=== PATIENT | male | born 1960 | race African-American/Black ===

== ENCOUNTER 2017-03-03 12:50 | Inpatient (IN) | payer BC ==
[2017-03-03 17:07] VITALS: BMI 20.8
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
[2017-03-03] MEDS ORDERED: MAGNESIUM CITRATE 300 ML BOTTLE PO PRN (19:45)
[2017-03-03] MEDS ORDERED: MENTHOL/PHENOL 1 EACH UD MM PRN (19:45)
[2017-03-03] MEDS ORDERED: LOPERAMIDE HCL 2 MG CAPSULE PO PRN (19:45)
[2017-03-03] MEDS ORDERED: guaiFENesin/D-METHORPHAN HB 10 ML UNIT-DOSE CUPS PO PRN (19:45)
[2017-03-03] MEDS ORDERED: MAG HYDROX/AL HYDROX/SIMETH 30 ML UNIT-DOSE CUP PO PRN (19:45)
[2017-03-03] MEDS ORDERED: NICOTINE POLACRILEX 2 MG GUM BUC PRN (19:45)
[2017-03-03] MEDS ORDERED: MAGNESIUM HYDROX 2400MG/30ML ORAL SUSPENSION 30 ML CUP PO PRN (19:45)
[2017-03-03] MEDS ORDERED: chlordiazePOXIDE HCL 25 MG CAPSULE PO ONE (19:45)
[2017-03-03] MEDS ORDERED: chlordiazePOXIDE HCL 25 MG CAPSULE PO PRN (19:45)
[2017-03-03] MEDS ORDERED: P-EPHED 60MG/TRIPROLIDI 2.5MG TABLET PO PRN (19:45)
[2017-03-03] MEDS ORDERED: ACETAMINOPHEN 325 MG TABLET (FP) PO PRN (19:45)
[2017-03-03 22:27] LABS: URINE APPEARANCE CLEAR; URINE BILIRUBIN NEGATIVE (NEGATIVE); URINE BLOOD NEGATIVE (NEGATIVE); URINE COLOR STRAW; URINE GLUCOSE (UA) NEGATIVE (NEGATIVE); URINE KETONE NEGATIVE (NEGATIVE); URINE LEUK ESTERASE NEGATIVE (NEGATIVE); URINE NITRITE NEGATIVE (NEGATIVE); URINE PROTEIN NEGATIVE (NEGATIVE); URINE UROBILINOGEN NEGATIVE E.U./dl (0.2-1.0)
[2017-03-03] MEDS: diphenhydrAMINE HCL 50 MG CAPSULE PO PRN (23:11)
[2017-03-03] MEDS: NAPROXEN 500 MG TABLET (FP) PO SCH (23:12)
[2017-03-03] MEDS: RANITIDINE HCL 150 MG TABLET (FP) PO SCH (23:12)
[2017-03-03] MEDS: chlordiazePOXIDE HCL 25 MG CAPSULE PO SCH (23:12)
[2017-03-03] MEDS: THIAMINE HCL 100 MG TABLET (FP) PO SCH (23:12)
[2017-03-04] MEDS: chlordiazePOXIDE HCL 25 MG CAPSULE PO SCH ×4 (07:36→22:14)
[2017-03-04 10:08] LABS: MCH 32.9 pg (25.7-33.7); MCHC 33.5 g/dl (32.0-35.9); MEAN CELL VOLUME 98.3 fl (80-96); MEAN PLT VOLUME 8.3 fl (7.5-11.1); PLATELET COUNT 160 K/MM3 (134-434); RDW 14.6 % (11.9-15.9); WHITE BLOOD COUNT 4.3 K/mm3 (4.0-10.0)
[2017-03-04 10:31] LABS: ALBUMIN 3.5 g/dl (3.4-5.0); ANION GAP 12 (8-16); CALCIUM 9.2 mg/dL (8.5-10.1); CO2 26 mmol/L (21-32); GLUCOSE,RANDOM 82 mg/dL (74-106); SGOT/AST 32 U/L (15-37)
[2017-03-04 10:34] LABS: ALK PHOS 108 U/L (45-117); COCKROFT - GAULT 99.34; CREATININE 0.7 mg/dL (0.7-1.3); SGPT/ALT 21 U/L (12-78); TOT PROT 7.9 g/dl (6.4-8.2)
[2017-03-04] MEDS: HYDROCHLOROTHIAZIDE 12.5 MG CAPSULE (FP) PO SCH (11:01)
[2017-03-04] MEDS: RANITIDINE HCL 150 MG TABLET (FP) PO SCH ×2 (11:01→22:13)
[2017-03-04] MEDS: PRENATAL VITAMINS W/ FOLIC ACID TABLET (FP) PO SCH (11:01)
[2017-03-04] MEDS: LISINOPRIL 10 MG TABLET (FP) PO SCH (11:01)
[2017-03-04] MEDS: ASPIRIN 81 MG CHEWABLE TABLETS PO SCH (11:01)
[2017-03-04] MEDS: NAPROXEN 500 MG TABLET (FP) PO SCH ×2 (11:02→22:13)
[2017-03-04] MEDS: METHADONE HCL 10 MG TABLET PO SCH (11:03)
[2017-03-04] MEDS: NICOTINE 14 MG/24 HOURS TOPICAL PATCH TD SCH (11:04)
--- NOTE | 2017-03-04 13:54 | PN ---
S CIWA - CIWA Score Nausea/Vomitin Muscle Tremors: 2 Anxiety: 2 Agitation: 2 Paroxysmal Sweats: 3 Orientation: 0-Oriented Tacttile Disturbances: 2-Mild Itch/Numbness/Burn Auditory Disturbances: 0-None Visual Disturbances: 1-Very Mild Sensitivity Headache: 2-Mild CIWA-Ar Total Score: 16 S Progress Note (SOAP) Subjective: Right knee pain, anxiety, shakes and sweat Objective: 03/04/17 13:54 Vital Signs - 8 hr 03/04/17 03/04/17 06:00 10:49 Temperature 98.2 F 98.2 F Pulse Rate 81 99 H Respiratory 18 16 Rate Blood Pressure 135/81 125/79 Laboratory Last Values WBC 4.3 K/mm3 (4.0-10.0) 03/04/17 07:20 RBC 3.94 M/mm3 (4.00-5.60) L 03/04/17 07:20 Hgb 13.0 GM/dL (11.7-16.9) 03/04/17 07:20 Hct 38.7 % (35.4-49) 03/04/17 07:20 MCV 98.3 fl (80-96) H 03/04/17 07:20 MCHC 33.5 g/dl (32.0-35.9) 03/04/17 07:20 RDW 14.6 % (11.9-15.9) 03/04/17 07:20 Plt Count 160 K/MM3 (134-434) 03/04/17 07:20 MPV 8.3 fl (7.5-11.1) 03/04/17 07:20 Sodium 137 mmol/L (136-145) 03/04/17 07:20 Potassium 3.8 mmol/L (3.5-5.1) 03/04/17 07:20 Chloride 99 mmol/L (98-107) 03/04/17 07:20 Carbon Dioxide 26 mmol/L (21-32) 03/04/17 07:20 Anion Gap 12 (8-16) 03/04/17 07:20 BUN 12 mg/dL (7-18) 03/04/17 07:20 Creatinine 0.7 mg/dL (0.7-1.3) 03/04/17 07:20 Creat Clearance w eGFR > 60 (>60) 03/04/17 07:20 Random Glucose 82 mg/dL (74-106) 03/04/17 07:20 Calcium 9.2 mg/dL (8.5-10.1) 03/04/17 07:20 Total Bilirubin 1.0 mg/dL (0.2-1.0) 03/04/17 07:20 AST 32 U/L (15-37) D 03/04/17 07:20 ALT 21 U/L (12-78) D 03/04/17 07:20 Alkaline Phosphatase 108 U/L (45-117) 03/04/17 07:20 Total Protein 7.9 g/dl (6.4-8.2) 03/04/17 07:20 Albumin 3.5 g/dl (3.4-5.0) 03/04/17 07:20 Urine Color Straw 03/03/17 21:30 Urine Appearance Clear 03/03/17 21:30 Urine pH 6.0 (5.0-8.0) 03/03/17 21:30 Ur Specific [place] < 1.005 (1.001-1.035) 03/03/17 21:30 Urine Protein Negative (NEGATIVE) 03/03/17 21:30 Urine Glucose (UA) Negative (NEGATIVE) 03/03/17 21:30 Urine Ketones Negative (NEGATIVE) 03/03/17 21:30 Urine Blood Negative (NEGATIVE) 03/03/17 21:30 Urine Nitrite Negative (NEGATIVE) 03/03/17 21:30 Urine Bilirubin Negative (NEGATIVE) 03/03/17 21:30 Urine Urobilinogen Negative E.U./dl (0.2-1.0) 03/03/17 21:30 Ur Leukocyte Esterase Negative (NEGATIVE) 03/03/17 21:30 RPR Titer Nonreactive (NONREACTIVE) 03/04/17 07:20 Labs noted Assessment: 03/04/17 13:54 withdrawal sx right knee swelling Plan: continue detox xray of the right knee today showed richard loose body in the supra patellar joint space with degenerative changes with no signs of a fracture. There is joint effusion with recommended ortho f/u should symptoms persist. Continue naproxen.
[2017-03-04] MEDS: CALCIUM 250MG/VIT-D 125 UNITS 1 COMBO TABLET PO SCH (15:47)
--- NOTE | 2017-03-04 18:03 | CONSULT ---
[facility] Psychiatric Consult - Data Date of interview: 03/04/17 Admission source: [facility] Identifying data: Another admission to [facility] for this 56 y/o AA male seeking detox treatment on for alcohol,cocaine and opioid dependence.Patient is single,a father of one,domiciled,unemployed and supported on SSI benefits. Substance Abuse History: - Smoking Cessation. Smoking history: Current every day smoker. Have you smoked in the past 12 months: Yes. Aproximately how many cigarettes per day: 10. Cigars Per Day: 0. Hx Chewing Tobacco Use: No. Initiated information on smoking cessation: Yes. 'Breaking Loose' booklet given : 03/03/17. - Substance & Tx. History. Hx Alcohol Use: Yes. Hx Substance Use : Yes. Substance Use Type: Alcohol, Cocaine. Hx Substance Use Treatment: Yes. - Substances Abused. Alcohol. Route: Oral. Frequency: Daily. Amount used: BEER- 8 (24oz). Age of first use: 14. Date of Last Use: 03/03/17. Confirmed by patient. Medical History: Arthritis and a history of orthosurgery for torn ligaments ( right ankle) and right knee (1990).Treated in the past for arthur (right wrist) .Walks with a cane. Psychiatric History: Patient denies.He is prescribed trazodone by his primary care doctor. Physical/Sexual Abuse/Trauma History: Patient denies. Additional Comment: Urine Drug Screen Results: SUZANNA-Cocaine, MTD-Methadone.Noted. Mental Status Exam - Mental Status Exam Alert and Oriented to: Time, Place, Person Cognitive Function: Good Patient Appearance: Well Groomed (walks with a stooped posture) Mood: Irritable (angry at staff for frequent calls such as labs,vitals,consults, exams and sessions) Affect: Mood Congruent Patient Behavior: Fatigued, Cooperative (marginally) Speech Pattern: Clear Voice Loudness: Normal Thought Process: Goal Oriented Thought Disorder: Not Present Hallucinations: Denies Suicidal Ideation: Denies Homicidal Ideation: Denies Insight/Judgement: Poor Sleep: Poorly, Difficulty falling asleep (wants trazodone) Appetite: Poor Gait/Station: Other (ambulkates with cane) Psychiatric Findings - Problem List ([place] 1, 2,3) (1) Alcohol dependence with uncomplicated withdrawal Current Visit: Yes Status: Acute (2) Opioid dependence on agonist therapy Current Visit: No Status: Chronic (3) Cocaine dependence Current Visit: Yes Status: Acute (4) Nicotine dependence Current Visit: Yes Status: Acute Qualifiers: Nicotine product type: cigarettes Substance use status: in withdrawal Qualified Code(s): F17.213 - Nicotine dependence, cigarettes, with withdrawal (5) Substance induced mood disorder Current Visit: Yes Status: Acute (6) Arthritis Current Visit: Yes Status: Acute Comment: SWELLING - right knee - naproxen (7) Weight loss Current Visit: Yes Status: Acute Comment: ENSURE (8) GERD (gastroesophageal reflux disease) Current Visit: Yes Status: Chronic Qualifiers: Esophagitis presence: without esophagitis Qualified Code(s): K21.9 - Gastro-esophageal reflux disease without esophagitis (9) Hypertension Current Visit: Yes Status: Chronic Qualifiers: Hypertension type: essential hypertension Qualified Code(s): I10 - Essential (primary) hypertension (10) Use of cane as ambulatory aid Current Visit: Yes Status: Chronic (11) Insomnia Current Visit: Yes Status: Acute - Initial Treatment Plan Initial Treatment Plan: Psychoeducation.Detoxification.Trazodone 50 mg po hs.Patient made aware of potential for priapism.He is in agreement with this careplan.Observation.
[2017-03-04] MEDS: THIAMINE HCL 100 MG TABLET (FP) PO SCH (22:13)
[2017-03-04] MEDS: traZODone HCL 50 MG TABLET (FP) PO SCH (22:13)
[2017-03-04] MEDS: diphenhydrAMINE HCL 50 MG CAPSULE PO PRN (22:16)
[2017-03-05] MEDS: chlordiazePOXIDE HCL 25 MG CAPSULE PO SCH ×3 (07:43→18:17)
[2017-03-05] MEDS: METHADONE HCL 10 MG TABLET PO SCH (07:46)
[2017-03-05] MEDS: ASPIRIN 81 MG CHEWABLE TABLETS PO SCH (10:54)
[2017-03-05] MEDS: RANITIDINE HCL 150 MG TABLET (FP) PO SCH ×2 (10:55→22:02)
[2017-03-05] MEDS: CALCIUM 250MG/VIT-D 125 UNITS 1 COMBO TABLET PO SCH (10:55)
[2017-03-05] MEDS: PRENATAL VITAMINS W/ FOLIC ACID TABLET (FP) PO SCH (10:55)
[2017-03-05] MEDS: NAPROXEN 500 MG TABLET (FP) PO SCH ×2 (10:55→22:03)
[2017-03-05] MEDS: NICOTINE 14 MG/24 HOURS TOPICAL PATCH TD SCH ×2 (10:55→15:26)
[2017-03-05] MEDS: HYDROCHLOROTHIAZIDE 12.5 MG CAPSULE (FP) PO SCH (10:56)
[2017-03-05] MEDS: LISINOPRIL 10 MG TABLET (FP) PO SCH (10:56)
--- NOTE | 2017-03-05 12:01 | PN ---
[facility] CIWA - CIWA Score Nausea/Vomitin-No Nausea/No Vomiting Muscle Tremors: 3 Anxiety: 4-Mod. Anxious/Guarded Agitation: 4-Moderately Restless Paroxysmal Sweats: 3 Orientation: 0-Oriented Tacttile Disturbances: 0-None Auditory Disturbances: 0-None Visual Disturbances: 0-None Headache: 0-None Present CIWA-Ar Total Score: 14 BHS Progress Note (SOAP) Subjective: Anxiety,tremors,sweating,interrupted sleep,restless Objective: 03/05/17 11:58 Vital Signs - 8 hr 03/05/17 03/05/17 06:00 09:47 Temperature 98.1 F 97.7 F Pulse Rate 98 H 94 H Respiratory 18 20 Rate Blood Pressure 124/93 94/68 Laboratory Last Values WBC 4.3 K/mm3 (4.0-10.0) 03/04/17 07:20 RBC 3.94 M/mm3 (4.00-5.60) L 03/04/17 07:20 Hgb 13.0 GM/dL (11.7-16.9) 03/04/17 07:20 Hct 38.7 % (35.4-49) 03/04/17 07:20 MCV 98.3 fl (80-96) H 03/04/17 07:20 MCHC 33.5 g/dl (32.0-35.9) 03/04/17 07:20 RDW 14.6 % (11.9-15.9) 03/04/17 07:20 Plt Count 160 K/MM3 (134-434) 03/04/17 07:20 MPV 8.3 fl (7.5-11.1) 03/04/17 07:20 Sodium 137 mmol/L (136-145) 03/04/17 07:20 Potassium 3.8 mmol/L (3.5-5.1) 03/04/17 07:20 Chloride 99 mmol/L (98-107) 03/04/17 07:20 Carbon Dioxide 26 mmol/L (21-32) 03/04/17 07:20 Anion Gap 12 (8-16) 03/04/17 07:20 BUN 12 mg/dL (7-18) 03/04/17 07:20 Creatinine 0.7 mg/dL (0.7-1.3) 03/04/17 07:20 Creat Clearance w eGFR > 60 (>60) 03/04/17 07:20 Random Glucose 82 mg/dL (74-106) 03/04/17 07:20 Calcium 9.2 mg/dL (8.5-10.1) 03/04/17 07:20 Total Bilirubin 1.0 mg/dL (0.2-1.0) 03/04/17 07:20 AST 32 U/L (15-37) D 03/04/17 07:20 ALT 21 U/L (12-78) D 03/04/17 07:20 Alkaline Phosphatase 108 U/L (45-117) 03/04/17 07:20 Total Protein 7.9 g/dl (6.4-8.2) 03/04/17 07:20 Albumin 3.5 g/dl (3.4-5.0) 03/04/17 07:20 Urine Color Straw 03/03/17 21:30 Urine Appearance Clear 03/03/17 21:30 Urine pH 6.0 (5.0-8.0) 03/03/17 21:30 Ur Specific [place] < 1.005 (1.001-1.035) 03/03/17 21:30 Urine Protein Negative (NEGATIVE) 03/03/17 21:30 Urine Glucose (UA) Negative (NEGATIVE) 03/03/17 21:30 Urine Ketones Negative (NEGATIVE) 03/03/17 21:30 Urine Blood Negative (NEGATIVE) 03/03/17 21:30 Urine Nitrite Negative (NEGATIVE) 03/03/17 21:30 Urine Bilirubin Negative (NEGATIVE) 03/03/17 21:30 Urine Urobilinogen Negative E.U./dl (0.2-1.0) 03/03/17 21:30 Ur Leukocyte Esterase Negative (NEGATIVE) 03/03/17 21:30 RPR Titer Nonreactive (NONREACTIVE) 03/04/17 07:20 labs noted X-ray of knee is negative for fracture,the are degenerative changes & possible small joint effusion. Assessment: 03/05/17 11:59 Withdrawal sx. Plan: Continue detox
[2017-03-05] MEDS: THIAMINE HCL 100 MG TABLET (FP) PO SCH (22:02)
[2017-03-05] MEDS: traZODone HCL 50 MG TABLET (FP) PO SCH (22:02)
[2017-03-05] MEDS: chlordiazePOXIDE 5 MG CAPSULE PO SCH (22:02)
[2017-03-06] MEDS: chlordiazePOXIDE 5 MG CAPSULE PO SCH ×3 (06:59→17:13)
--- NOTE | 2017-03-06 09:11 | EKG ---
Test Reason : Blood Pressure : / mmHG Vent. Rate : 077 BPM Atrial Rate : 077 BPM P-R Int : 166 ms QRS Dur : 078 ms QT Int : 378 ms P-R-T Axes : 064 067 049 degrees QTc Int : 427 ms NORMAL SINUS RHYTHM WITH SINUS ARRHYTHMIA POSSIBLE LEFT ATRIAL ENLARGEMENT BORDERLINE ECG NO PREVIOUS ECGS AVAILABLE Confirmed by VERONIQUE PRADO MD ([id number]) on 03/06/2017 9:11:18 AM Referred By: Confirmed By:VERONIQUE PRADO MD
[2017-03-06] MEDS: METHADONE HCL 10 MG TABLET PO SCH (10:14)
[2017-03-06] MEDS: CALCIUM 250MG/VIT-D 125 UNITS 1 COMBO TABLET PO SCH (10:15)
[2017-03-06] MEDS: NICOTINE 14 MG/24 HOURS TOPICAL PATCH TD SCH (10:15)
[2017-03-06] MEDS: PRENATAL VITAMINS W/ FOLIC ACID TABLET (FP) PO SCH (10:15)
[2017-03-06] MEDS: NAPROXEN 500 MG TABLET (FP) PO SCH ×2 (10:15→23:54)
[2017-03-06] MEDS: RANITIDINE HCL 150 MG TABLET (FP) PO SCH ×2 (10:15→23:55)
[2017-03-06] MEDS: ASPIRIN 81 MG CHEWABLE TABLETS PO SCH (10:15)
[2017-03-06] MEDS: HYDROCHLOROTHIAZIDE 12.5 MG CAPSULE (FP) PO SCH (10:39)
[2017-03-06] MEDS: LISINOPRIL 10 MG TABLET (FP) PO SCH (10:39)
--- NOTE | 2017-03-06 10:42 | PN ---
BHS Progress Note (SOAP) Subjective: sweats stomach cramps Objective: 03/06/17 10:41 Vital Signs Temperature 97.7 F 03/06/17 09:59 Pulse Rate 75 03/06/17 09:59 Respiratory Rate 16 03/06/17 09:59 Blood Pressure 105/74 03/06/17 09:59 O2 Sat by Pulse Oximetry (%) awake/alert ambulating no acute distress Assessment: 03/06/17 10:42 withdrawal sx Plan: continue detox mom/mylanta d/c in am
[2017-03-06] MEDS: traZODone HCL 50 MG TABLET (FP) PO SCH (23:54)
[2017-03-06] MEDS: chlordiazePOXIDE HCL 10 MG CAPSULE PO SCH (23:54)
[2017-03-06] MEDS: THIAMINE HCL 100 MG TABLET (FP) PO SCH (23:55)
[2017-03-07] MEDS: METHADONE HCL 10 MG TABLET PO SCH (06:44)
[2017-03-07] MEDS: chlordiazePOXIDE HCL 10 MG CAPSULE PO SCH (06:44)
--- NOTE | 2017-03-07 08:45 | DS ---
[facility] Detox Discharge Summary Admission Date: 03/03/17 Discharge Date: 03/07/17 - History Present History: Alcohol Dependence, Cocaine Dependence, MMTP - Physical Exam Results Vital Signs: Vital Signs Temperature 96.8 F L 03/07/17 06:07 Pulse Rate 75 03/07/17 06:07 Respiratory Rate 16 03/07/17 06:07 Blood Pressure 98/65 03/07/17 06:07 O2 Sat by Pulse Oximetry (%) - Treatment Hospital Course: Detox Protocol Followed, Detoxed Safely, Responded well, Discharged Condition Good - Medication Discharge Medications: Ambulatory Orders Trazodone HCl [Desyrel -] 50 mg PO HS 09/03/16 Trazodone HCl [Desyrel -] 50 mg PO HS #30 tablet 03/04/17 - Diagnosis (1) Alcohol dependence with uncomplicated withdrawal Current Visit: Yes Status: Chronic (2) Arthritis Current Visit: Yes Status: Chronic (3) Cocaine dependence Current Visit: Yes Status: Chronic Qualifiers: Substance use status: uncomplicated Qualified Code(s): F14.20 - Cocaine dependence, uncomplicated (4) Nicotine dependence Current Visit: Yes Status: Chronic Qualifiers: Nicotine product type: cigarettes Substance use status: in withdrawal Qualified Code(s): F17.213 - Nicotine dependence, cigarettes, with withdrawal (5) Weight loss Current Visit: Yes Status: Acute (6) Use of cane as ambulatory aid Current Visit: Yes Status: Chronic (7) Anxiety Current Visit: Yes Status: Chronic - AMA Did Patient Leave Against Medical Advice: No
[2017-03-07] MEDS: RANITIDINE HCL 150 MG TABLET (FP) PO SCH (10:00)
[2017-03-07] MEDS: LISINOPRIL 10 MG TABLET (FP) PO SCH (10:00)
[2017-03-07] MEDS: HYDROCHLOROTHIAZIDE 12.5 MG CAPSULE (FP) PO SCH (10:00)
[2017-03-07] MEDS: ASPIRIN 81 MG CHEWABLE TABLETS PO SCH (10:00)
[2017-03-07] MEDS: CALCIUM 250MG/VIT-D 125 UNITS 1 COMBO TABLET PO SCH (10:00)
[2017-03-07] MEDS: NAPROXEN 500 MG TABLET (FP) PO SCH (10:00)
[2017-03-07] MEDS: NICOTINE 14 MG/24 HOURS TOPICAL PATCH TD SCH (10:00)
[2017-03-07] MEDS: PRENATAL VITAMINS W/ FOLIC ACID TABLET (FP) PO SCH (10:00)
[2017-03-07 11:05] VITALS: BP 100/65; PULSE 96; TEMP 98.1
== END 2017-03-07 10:02 | disposition home or self-care (01) | DRG 774 ==
LOC: YASAS 12:50 → Y6N 18:42
PROVIDERS: ADMIT Internal Medicine; ATTEND Internal Medicine
DX: F10.230 Alcohol dependence with withdrawal, uncomplicated (principal); F14.20 Cocaine dependence, uncomplicated; F17.213 Nicotine dependence, cigarettes, with withdrawal; F19.24 Other psychoactive substance dependence with psychoactive substance-induced mood disorder; K21.9 Gastro-esophageal reflux disease without esophagitis; M12.9 Arthropathy, unspecified; R26.2 Difficulty in walking, not elsewhere classified; R63.4 Abnormal weight loss; Z68.20 Body mass index [BMI] 20.0-20.9, adult; F41.9 Anxiety disorder, unspecified
CPT/HCPCS: 36415; 73560-TC-RT; 80053; 81003; 85027; 86593; 93005; 93010

== ENCOUNTER 2017-07-08 13:59 | Inpatient (IN) | payer BC ==
[2017-07-08 14:44] VITALS: BMI 24.5
--- NOTE | 2017-07-08 16:22 | HP ---
CIWA Score - CIWA Score Nausea/Vomitin Muscle Tremors: 2 Anxiety: 2 Agitation: 2 Paroxysmal Sweats: 2 Orientation: 1-Uncertain about Date Tacttile Disturbances: 1-Very Mild Itch/Numbness Auditory Disturbances: 1-Very Mild Visual Disturbances: 1-Very Mild Sensitivity Headache: 2-Mild CIWA-Ar Total Score: 16 Admission ROS BHS - HPI Chief Complaint: I am here because I'm drinking Allergies/Adverse Reactions: Allergies Allergy/AdvReac Type Severity Reaction Status Date / Time No Known Allergies Allergy Verified 10/07/16 17:12 History of Present Illness: 57 year old man with alcohol dependence presents for detox. His last treatment was at [facility] 4 months ago. He is on methadone maintenance, 30mg with last dose today.. Exam Limitations: No Limitations - Ebola screening Have you traveled outside of the country in the last 21 days: No Have you had contact with anyone from an Ebola affected area: No Have you been sick,other than usual withdrawal symptoms: No Do you have a fever: No - Review of Systems Constitutional: Chills, Loss of Appetite EENT: reports: No Symptoms Reported Respiratory: reports: No Symptoms reported Cardiac: reports: No Symptoms Reported GI: reports: No Symptoms Reported : reports: No Symptoms Reported Musculoskeletal: reports: Back Pain, Muscle Pain, Muscle Weakness Integumentary: reports: No Symptoms Reported Neuro: reports: Headache Endocrine: reports: No Symptoms Reported Hematology: reports: No Symptoms Reported Psychiatric: reports: No Sypmtoms Reported, Depressed Other Systems: Reviewed and Negative Patient History - Patient Medical History Hx Anemia: No Hx Asthma: No Hx Chronic Obstructive Pulmonary Disease (COPD): No Hx Cancer: No Hx Cardiac Disorders: No Hx Congestive Heart Failure: No Hx Hypertension: Yes Hx Hypercholesterolemia: No Hx Pacemaker: No HX Cerebrovascular Accident: No Hx Seizures: No Hx Dementia: No Hx Diabetes: No Hx Gastrointestinal Disorders: Yes Hx Liver Disease: No Hx Genitourinary Disorders: No Hx Sexually Transmitted Disorders: No Hx Renal Disease (ESRD): No Hx Thyroid Disease: No Hx Human Immunodeficiency Virus (HIV): No Hx Hepatitis C: No Hx Depression: Yes Hx Suicide Attempt: No Hx Bipolar Disorder: No Hx Schizophrenia: No - Patient Surgical History Past Surgical History: Yes Hx Neurologic Surgery: No Hx Cataract Extraction: No Hx Cardiac Surgery: No Hx Lung Surgery: No Hx Breast Surgery: No Hx Breast Biopsy: No Hx Abdominal Surgery: No Hx Appendectomy: No Hx Cholecystectomy: No Hx Genitourinary Surgery: No Hx Section: No Hx Orthopedic Surgery: Yes (rt knee surgery in 1990) Other Surgical History: right ankle torn ligament repair Anesthesia Reaction: No - PPD History Previous Implant?: Yes Documented Results: Negative w/proof Implanted On Prior [facility] Admission?: Yes Date: 07/21/16 Results: 0 mm PPD to be Administered?: Yes - Smoking Cessation Smoking history: Current every day smoker Have you smoked in the past 12 months: Yes Aproximately how many cigarettes per day: 10 Cigars Per Day: 0 Hx Chewing Tobacco Use: No Initiated information on smoking cessation: Yes 'Breaking Loose' booklet given: 07/08/17 - Substance & Tx. History Hx Alcohol Use: Yes (beer) Hx Substance Use: Yes Substance Use Type: Cocaine - Substances Abused Alcohol Route: Oral Frequency: Daily Amount used: 9 24 oz cans Age of first use: 13 Date of Last Use: 07/08/17 Cocaine Route: Smoking Frequency: Daily Amount used: 1 bag Age of first use: 14 Date of Last Use: 07/08/17 Family Disease History - Family Disease History Family Disease History: CA: Father (lung ca alcohol), Other: Mother ( htn) Admission Physical Exam S - Vital Signs Vital Signs: Vital Signs - 24 hr 07/08/17 14:42 Temperature 95.9 F L Pulse Rate 95 H Respiratory 20 Rate Blood Pressure 127/83 - Physical General Appearance: Yes: No Apparent Distress HEENTM: Yes: Hearing grossly Normal, Normocephalic, Normal Voice, STEFANIE Respiratory: Yes: Chest Non-Tender, Lungs Clear, No Accessory Muscle Use Neck: Yes: No masses,lesions,Nodules, Supple Breast: Yes: Breast Exam Deferred Cardiology: Yes: Regular Rhythm, Regular Rate Abdominal: Yes: Normal Bowel Sounds, Non Tender, Soft Genitourinary: Yes: Within Normal Limits Back: Yes: Normal Inspection Musculoskeletal: Yes: Other (right knee pain, walks with a cane) Extremities: Yes: Normal Capillary Refill, Normal Inspection, Normal Range of Motion Neurological: Yes: Fully Oriented, Motor Strength 5/5, Normal Mood/Affect Integumentary: Yes: Normal Color Lymphatic: Yes: Within Normal Limits - Diagnostic (1) Alcohol dependence with uncomplicated withdrawal Current Visit: No Status: Chronic (2) Cocaine dependence Current Visit: No Status: Chronic Qualifiers: Substance use status: uncomplicated Qualified Code(s): F14.20 - Cocaine dependence, uncomplicated (3) Hypertension Current Visit: No Status: Chronic Qualifiers: Hypertension type: essential hypertension Qualified Code(s): I10 - Essential (primary) hypertension (4) Methadone maintenance therapy patient Current Visit: No Status: Chronic Comment: 30 MG verification pending (5) Nicotine dependence Current Visit: No Status: Chronic Qualifiers: Nicotine product type: cigarettes Substance use status: in withdrawal Qualified Code(s): F17.213 - Nicotine dependence, cigarettes, with withdrawal (6) Depression Current Visit: No Status: Suspected Qualifiers: Depression Type: dysthymia Qualified Code(s): F34.1 - Dysthymic disorder Comment: TRAZODONE Cleared for Admission S - Detox or Rehab [facility] Level of Care: Medically Managed Detox Regimen/Protocol: Librium S Breath Alcohol Content Breath Alcohol Content: 0.320 Urine Drug Screen - Results Drug Screen Negative: No Urine Drug Screen Results: SUZANNA-Cocaine, MTD-Methadone
[2017-07-08] MEDS ORDERED: chlordiazePOXIDE HCL 25 MG CAPSULE PO PRN (16:34)
[2017-07-08] MEDS ORDERED: LOPERAMIDE HCL 2 MG CAPSULE PO PRN (16:34)
[2017-07-08] MEDS ORDERED: NICOTINE POLACRILEX 2 MG GUM BUC PRN (16:34)
[2017-07-08] MEDS ORDERED: ACETAMINOPHEN 325 MG TABLET (FP) PO PRN (16:34)
[2017-07-08] MEDS ORDERED: MENTHOL/PHENOL 1 EACH UD MM PRN (16:34)
[2017-07-08] MEDS ORDERED: MAGNESIUM CITRATE 300 ML BOTTLE PO PRN (16:34)
[2017-07-08] MEDS ORDERED: guaiFENesin/D-METHORPHAN HB 10 ML UNIT-DOSE CUPS PO PRN (16:34)
[2017-07-08] MEDS ORDERED: P-EPHED 60MG/TRIPROLIDI 2.5MG TABLET PO PRN (16:34)
[2017-07-08] MEDS ORDERED: MAG HYDROX/AL HYDROX/SIMETH 30 ML UNIT-DOSE CUP PO PRN (16:34)
[2017-07-08] MEDS ORDERED: chlordiazePOXIDE HCL 25 MG CAPSULE PO ONE (16:34)
[2017-07-08] MEDS ORDERED: IBUPROFEN 400 MG TABLET (FP) PO PRN (16:34)
[2017-07-08] MEDS ORDERED: MAGNESIUM HYDROX 2400MG/30ML ORAL SUSPENSION 30 ML CUP PO PRN (16:34)
[2017-07-08] MEDS: chlordiazePOXIDE HCL 25 MG CAPSULE PO SCH ×2 (21:56→21:59)
[2017-07-08] MEDS: NICOTINE 14 MG/24 HOURS TOPICAL PATCH TD SCH (21:57)
[2017-07-08] MEDS: diphenhydrAMINE HCL 50 MG CAPSULE PO PRN (21:59)
[2017-07-08] MEDS: THIAMINE HCL 100 MG TABLET (FP) PO SCH (21:59)
[2017-07-09] MEDS: chlordiazePOXIDE HCL 25 MG CAPSULE PO SCH ×4 (05:12→22:51)
[2017-07-09 09:50] LABS: MCH 31.8 pg (25.7-33.7); MCHC 33.3 g/dl (32.0-35.9); MEAN CELL VOLUME 95.5 fl (80-96); MEAN PLT VOLUME 7.8 fl (7.5-11.1); PLATELET COUNT 213 K/MM3 (134-434); RDW 15.3 % (11.9-15.9)
--- NOTE | 2017-07-09 09:54 | EKG ---
Test Reason : Blood Pressure : / mmHG Vent. Rate : 067 BPM Atrial Rate : 067 BPM P-R Int : 182 ms QRS Dur : 082 ms QT Int : 408 ms P-R-T Axes : 070 074 053 degrees QTc Int : 431 ms NORMAL SINUS RHYTHM POSSIBLE LEFT ATRIAL ENLARGEMENT NONSPECIFIC T WAVE ABNORMALITY Confirmed by MD EDWARDO, DANNY ([id number]) on 07/09/2017 9:53:51 AM Referred By: Confirmed By:DANNY BROOKE MD
[2017-07-09] MEDS: PRENATAL VITAMINS W/ FOLIC ACID TABLET (FP) PO SCH (10:17)
[2017-07-09] MEDS: LISINOPRIL 10 MG TABLET (FP) PO SCH (10:17)
[2017-07-09] MEDS: NICOTINE 14 MG/24 HOURS TOPICAL PATCH TD SCH (10:17)
[2017-07-09 10:23] LABS: ALBUMIN 3.3 g/dl (3.4-5.0); ALK PHOS 94 U/L (45-117); ANION GAP 8 (8-16); BILIRUBIN,TOTAL 0.7 mg/dL (0.2-1.0); CALCIUM 8.8 mg/dL (8.5-10.1); CO2 29 mmol/L (21-32); CREATININE 0.8 mg/dL (0.7-1.3); GLUCOSE,RANDOM 87 mg/dL (74-106); SGOT/AST 33 U/L (15-37); SGPT/ALT 19 U/L (12-78); TOT PROT 7.8 g/dl (6.4-8.2)
[2017-07-09] MEDS ORDERED: METHADONE HCL 10 MG TABLET PO ONE (11:30)
--- NOTE | 2017-07-09 17:27 | PN ---
S CIWA - CIWA Score Nausea/Vomitin Muscle Tremors: 4-Moderate,w/Arms Extend Anxiety: 4-Mod. Anxious/Guarded Agitation: 4-Moderately Restless Paroxysmal Sweats: 3 Orientation: 0-Oriented Tacttile Disturbances: 0-None Auditory Disturbances: 0-None Visual Disturbances: 0-None Headache: 3-Moderate CIWA-Ar Total Score: 21 BHS Progress Note (SOAP) Subjective: N/D, chills, sweating, headache, stuffy nose, interrupted sleep. Patient reports taking methadone 30mg PO daily as MMTP. He was able to locate his empty bottle of methadone 30mg that was given to him by his MMTP for today's dose. As per patient, the bottle was not covered properly so it spilled into his jacket pocket. Patient aware that junior copywriter will not give him no more than 10mg of methadone today until his dose is verified in AM. Objective: 07/09/17 17:24 Last Vital Signs Temp Pulse Resp BP Pulse Ox 98.7 F 90 20 131/86 07/09/17 13:24 07/09/17 13:24 07/09/17 13:24 07/09/17 13:24 Laboratory Tests 07/09/17 07/09/17 07/09/17 07:50 07:50 07:50 WBC 5.0 RBC 3.75 L Hgb 11.9 Hct 35.8 MCV 95.5 MCH 31.8 MCHC 33.3 RDW 15.3 Plt Count 213 D MPV 7.8 Sodium 135 L Potassium 4.1 Chloride 98 Carbon Dioxide 29 Anion Gap 8 BUN 12 Creatinine 0.8 Creat Clearance w eGFR > 60 Random Glucose 87 Calcium 8.8 Total Bilirubin 0.7 D AST 33 ALT 19 Alkaline Phosphatase 94 Total Protein 7.8 Albumin 3.3 L RPR Titer Reactive 1:1 H D T.pallidum Ab (MHA) Reactive Labs noted: RPR reactive 1:1 titer, TPPA reactive. Patient reports h/o Syphilis and was treated ~ 1 year ago at [facility] with 3 IM injections Assessment: 07/09/17 17:26 Withdrawal symptoms Noted with latent syphilis Opioid dependence, on MMTP Plan: Continue detox Latent syphilis: asymptomatic, treated ~1 year ago as per patient, follow up with PCP for monitoring Opioid dependence, on MMTP: suspected that yesterday, the patient drank today's methadone dose of 30mg along with yesterday's dose. Give methadone 10mg PO x 1 dose today. Need to verify his methadone MMTP in AM
[2017-07-09] MEDS: diphenhydrAMINE HCL 50 MG CAPSULE PO PRN (22:51)
[2017-07-09] MEDS: THIAMINE HCL 100 MG TABLET (FP) PO SCH (22:51)
[2017-07-10] MEDS: chlordiazePOXIDE HCL 25 MG CAPSULE PO SCH ×2 (05:31→10:43)
--- NOTE | 2017-07-10 08:47 | PN ---
S CIWA - CIWA Score Nausea/Vomitin Muscle Tremors: 4-Moderate,w/Arms Extend Anxiety: 4-Mod. Anxious/Guarded Agitation: 4-Moderately Restless Paroxysmal Sweats: 3 Orientation: 0-Oriented Tacttile Disturbances: 0-None Auditory Disturbances: 0-None Visual Disturbances: 0-None Headache: 0-None Present CIWA-Ar Total Score: 18 BHS Progress Note (SOAP) Subjective: nausa, sweats, interrupted sleep, anxiety, tremors Objective: 07/10/17 08:44 Vital Signs - 8 hr 07/10/17 07/10/17 03:41 06:33 Temperature 98 F Pulse Rate 82 Respiratory 18 18 Rate Blood Pressure 121/84 Laboratory Tests 07/09/17 07/09/17 07/09/17 07:50 07:50 07:50 WBC 5.0 RBC 3.75 L Hgb 11.9 Hct 35.8 MCV 95.5 MCH 31.8 MCHC 33.3 RDW 15.3 Plt Count 213 D MPV 7.8 Sodium 135 L Potassium 4.1 Chloride 98 Carbon Dioxide 29 Anion Gap 8 BUN 12 Creatinine 0.8 Creat Clearance w eGFR > 60 Random Glucose 87 Calcium 8.8 Total Bilirubin 0.7 D AST 33 ALT 19 Alkaline Phosphatase 94 Total Protein 7.8 Albumin 3.3 L RPR Titer Reactive 1:1 H D T.pallidum Ab (MHA) Reactive Assessment: 07/10/17 08:45 withdrawal sx Plan: cont detox, rpr +ve patient informed of result, methadone dose verified, 30mg ordered
[2017-07-10] MEDS: METHADONE HCL 10 MG TABLET PO SCH (10:42)
[2017-07-10] MEDS: LISINOPRIL 10 MG TABLET (FP) PO SCH (10:43)
[2017-07-10] MEDS: NICOTINE 14 MG/24 HOURS TOPICAL PATCH TD SCH (10:43)
[2017-07-10] MEDS: PRENATAL VITAMINS W/ FOLIC ACID TABLET (FP) PO SCH (10:43)
--- NOTE | 2017-07-10 13:20 | CONSULT ---
[facility] Psychiatric Consult - Data Date of interview: 07/10/17 Admission source: [facility] Identifying data: Patient refused psychiatric evaluation.
[2017-07-10] MEDS: chlordiazePOXIDE 5 MG CAPSULE PO SCH ×2 (17:40→22:17)
[2017-07-10] MEDS: THIAMINE HCL 100 MG TABLET (FP) PO SCH (22:17)
[2017-07-10] MEDS: diphenhydrAMINE HCL 50 MG CAPSULE PO PRN (22:17)
[2017-07-11] MEDS: METHADONE HCL 10 MG TABLET PO SCH (05:45)
[2017-07-11] MEDS: chlordiazePOXIDE 5 MG CAPSULE PO SCH ×2 (05:46→10:25)
[2017-07-11] MEDS: NICOTINE 14 MG/24 HOURS TOPICAL PATCH TD SCH (10:25)
[2017-07-11] MEDS: LISINOPRIL 10 MG TABLET (FP) PO SCH (10:25)
[2017-07-11] MEDS: PRENATAL VITAMINS W/ FOLIC ACID TABLET (FP) PO SCH (10:25)
--- NOTE | 2017-07-11 12:18 | PN ---
BHS Progress Note (SOAP) Subjective: Sweating, Diarrhea, Tremors, Body Aches, Interrupted sleep, Stomach Cramping, H/ A, Vomiting. Objective: PT. A & O X 3. NO ACUTE DISTRESS. 07/11/17 12:17 Vital Signs Temperature 98.4 F 07/11/17 09:24 Pulse Rate 86 07/11/17 09:24 Respiratory Rate 18 07/11/17 09:24 Blood Pressure 119/86 07/11/17 09:24 O2 Sat by Pulse Oximetry (%) Laboratory Tests 07/09/17 07/09/17 07/09/17 07:50 07:50 07:50 WBC 5.0 RBC 3.75 L Hgb 11.9 Hct 35.8 MCV 95.5 MCH 31.8 MCHC 33.3 RDW 15.3 Plt Count 213 D MPV 7.8 Sodium 135 L Potassium 4.1 Chloride 98 Carbon Dioxide 29 Anion Gap 8 BUN 12 Creatinine 0.8 Creat Clearance w eGFR > 60 Random Glucose 87 Calcium 8.8 Total Bilirubin 0.7 D AST 33 ALT 19 Alkaline Phosphatase 94 Total Protein 7.8 Albumin 3.3 L RPR Titer Reactive 1:1 H D T.pallidum Ab (MHA) Reactive labs noted. Assessment: 07/11/17 12:18 WITHDRAWAL SYMPTOMS. Plan: CONTINUE DETOX.
[2017-07-11] MEDS: chlordiazePOXIDE HCL 10 MG CAPSULE PO SCH ×2 (17:05→22:19)
[2017-07-11 18:11] LABS: URINE APPEARANCE SLCLOUDY; URINE BILIRUBIN NEGATIVE (NEGATIVE); URINE BLOOD NEGATIVE (NEGATIVE); URINE COLOR YELLOW; URINE GLUCOSE (UA) NEGATIVE (NEGATIVE); URINE KETONE NEGATIVE (NEGATIVE); URINE LEUK ESTERASE NEGATIVE (NEGATIVE); URINE NITRITE NEGATIVE (NEGATIVE); URINE PROTEIN NEGATIVE (NEGATIVE); URINE UROBILINOGEN NEGATIVE mg/dL (0.2-1.0)
[2017-07-11] MEDS: THIAMINE HCL 100 MG TABLET (FP) PO SCH (22:19)
[2017-07-11] MEDS: hydrOXYzine PAMOATE 50 MG CAPSULE (FP) PO PRN (22:21)
[2017-07-12] MEDS: hydrOXYzine PAMOATE 50 MG CAPSULE (FP) PO PRN (03:28)
[2017-07-12] MEDS: METHADONE HCL 10 MG TABLET PO SCH (05:39)
[2017-07-12] MEDS: chlordiazePOXIDE HCL 10 MG CAPSULE PO SCH (05:40)
[2017-07-12 06:30] VITALS: PULSE 89; TEMP 97.7
[2017-07-12 10:05] VITALS: BP 123/82
[2017-07-12] MEDS: NICOTINE 14 MG/24 HOURS TOPICAL PATCH TD SCH (10:24)
[2017-07-12] MEDS: PRENATAL VITAMINS W/ FOLIC ACID TABLET (FP) PO SCH (10:24)
[2017-07-12] MEDS: LISINOPRIL 10 MG TABLET (FP) PO SCH (10:24)
--- NOTE | 2017-07-12 20:23 | DS ---
[facility] Detox Discharge Summary Admission Date: 07/08/17 Discharge Date: 07/12/17 - History Present History: Alcohol Dependence, Cocaine Dependence, MMTP Additional Comments: PATIENT GOING TO [facility] ([facility]) FOR AFTERCARE. PATIENT WAS DICHARGED FROM DETOX UNIT IN STABLE MEDICAL CONDITION. Pertinent Past History: HTN, GERD, Depression. - Physical Exam Results Vital Signs: Vital Signs Temperature 97.7 F 07/12/17 10:05 Pulse Rate 89 07/12/17 10:05 Respiratory Rate 18 07/12/17 10:05 Blood Pressure 123/82 07/12/17 10:05 O2 Sat by Pulse Oximetry (%) Pertinent Admission Physical Exam Findings: WITHDRAWAL SYMPTOMS. Laboratory Tests 07/09/17 07/09/17 07/09/17 07:50 07:50 07:50 WBC 5.0 RBC 3.75 L Hgb 11.9 Hct 35.8 MCV 95.5 MCH 31.8 MCHC 33.3 RDW 15.3 Plt Count 213 D MPV 7.8 Sodium 135 L Potassium 4.1 Chloride 98 Carbon Dioxide 29 Anion Gap 8 BUN 12 Creatinine 0.8 Creat Clearance w eGFR > 60 Random Glucose 87 Calcium 8.8 Total Bilirubin 0.7 D AST 33 ALT 19 Alkaline Phosphatase 94 Total Protein 7.8 Albumin 3.3 L Urine Color Urine Appearance Urine pH Ur Specific [place] Urine Protein Urine Glucose (UA) Urine Ketones Urine Blood Urine Nitrite Urine Bilirubin Urine Urobilinogen RPR Titer Reactive 1:1 H D T.pallidum Ab (MHA) Reactive 07/11/17 14:00 WBC RBC Hgb Hct MCV MCH MCHC RDW Plt Count MPV Sodium Potassium Chloride Carbon Dioxide Anion Gap BUN Creatinine Creat Clearance w eGFR Random Glucose Calcium Total Bilirubin AST ALT Alkaline Phosphatase Total Protein Albumin Urine Color Yellow Urine Appearance Slcloudy Urine pH 6.0 Ur Specific [place] <= 1.005 Urine Protein Negative Urine Glucose (UA) Negative Urine Ketones Negative Urine Blood Negative Urine Nitrite Negative Urine Bilirubin Negative Urine Urobilinogen Negative RPR Titer T.pallidum Ab (MHA) LABS NOTED. - Treatment Hospital Course: Detox Protocol Followed, Detoxed Safely, Responded well, Discharged Condition Good, Rehab Referral Accepted Patient has Accepted a Rehab Referral to: [facility] ([facility] - Medication Discharge Medications: Ambulatory Orders Trazodone HCl [Desyrel -] 50 mg PO HS 09/03/16 Trazodone HCl [Desyrel -] 50 mg PO HS #30 tablet 03/04/17 Calcium 250Mg/Vit-D 125 Units [Oscal 250 mg+D -] 1 tab PO DAILY #30 tab Hydrochlorothiazide [Hctz -] 12.5 mg PO DAILY #30 cap 03/07/17 Ranitidine [Zantac -] 150 mg PO BID #60 tablet 03/07/17 Lisinopril [Prinivil] 10 mg PO DAILY #30 tablet 07/12/17 - Diagnosis (1) Alcohol dependence with uncomplicated withdrawal Status: Acute (2) Cocaine dependence Status: Acute Qualifiers: Substance use status: uncomplicated Qualified Code(s): F14.20 - Cocaine dependence, uncomplicated (3) GERD (gastroesophageal reflux disease) Status: Chronic Qualifiers: Esophagitis presence: without esophagitis Qualified Code(s): K21.9 - Gastro-esophageal reflux disease without esophagitis (4) Hypertension Status: Chronic Qualifiers: Hypertension type: essential hypertension Qualified Code(s): I10 - Essential (primary) hypertension (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
== END 2017-07-12 10:43 | disposition home or self-care (01) | DRG 773 ==
LOC: YASAS 13:59 → Y3N 17:57
PROVIDERS: ADMIT Internal Medicine Addiction Medicine; ATTEND Internal Medicine Addiction Medicine
PROC: HZ2ZZZZ Detoxification Services for Substance Abuse Treatment (ICD-10-PCS; principal; 2017-07-08)
DX: F11.20 Opioid dependence, uncomplicated (principal); F10.230 Alcohol dependence with withdrawal, uncomplicated; F14.20 Cocaine dependence, uncomplicated; F17.210 Nicotine dependence, cigarettes, uncomplicated; F34.1 Dysthymic disorder; I10 Essential (primary) hypertension; K21.9 Gastro-esophageal reflux disease without esophagitis; Z59.0 Homelessness
CPT/HCPCS: 36415; 80053; 81003; 85027; 86593; 86780; 93005; 93010

== ENCOUNTER 2017-12-04 12:55 | Inpatient (IN) | payer BC ==
[2017-12-04 16:21] VITALS: BMI 20.9
--- NOTE | 2017-12-04 16:37 | HP ---
CIWA Score - CIWA Score Nausea/Vomitin-No Nausea/No Vomiting Muscle Tremors: 4-Moderate,w/Arms Extend Anxiety: 4-Mod. Anxious/Guarded Agitation: 4-Moderately Restless Paroxysmal Sweats: 3 Orientation: 0-Oriented Tacttile Disturbances: 0-None Auditory Disturbances: 0-None Visual Disturbances: 0-None Headache: 1-Very Mild CIWA-Ar Total Score: 16 Admission ROS BHS - HPI Chief Complaint: I am here to detox. Allergies/Adverse Reactions: Allergies Allergy/AdvReac Type Severity Reaction Status Date / Time No Known Allergies Allergy Verified 12/04/17 16:06 History of Present Illness: pt is a 57yr old male with a history of alcohol dependence seeking detox for treatment. Exam Limitations: No Limitations - Ebola screening Have you traveled outside of the country in the last 21 days: No (N) Have you had contact with anyone from an Ebola affected area: No Have you been sick,other than usual withdrawal symptoms: No Do you have a fever: No - Review of Systems Constitutional: Chills EENT: reports: No Symptoms Reported Respiratory: reports: No Symptoms reported Cardiac: reports: Lightheadedness GI: reports: Nausea, Poor Appetite, Poor Fluid Intake, Vomiting, Indigestion : reports: No Symptoms Reported Musculoskeletal: reports: No Symptoms Reported Integumentary: reports: No Symptoms Reported Neuro: reports: Tingling, Tremors Endocrine: reports: Excessive Sweating, Flushing, Intolerance to Cold, Intolerance to Heat Hematology: reports: No Symptoms Reported Psychiatric: reports: Judgement Intact, Mood/Affect Appropiate, Orientated x3, Agitated, Anxious Other Systems: Reviewed and Negative Patient History - Patient Medical History Hx Anemia: No Hx Asthma: No Hx Chronic Obstructive Pulmonary Disease (COPD): No Hx Cancer: No Hx Cardiac Disorders: No Hx Congestive Heart Failure: No Hx Hypertension: Yes (not on meds.) Hx Hypercholesterolemia: No Hx Pacemaker: No HX Cerebrovascular Accident: No Hx Seizures: No Hx Dementia: No Hx Diabetes: No Hx Gastrointestinal Disorders: Yes (GERD) Hx Liver Disease: No Hx Genitourinary Disorders: No Hx Sexually Transmitted Disorders: No Hx Renal Disease (ESRD): No Hx Thyroid Disease: No Hx Human Immunodeficiency Virus (HIV): No (negative) Hx Hepatitis C: No (negative) Hx Depression: No Hx Suicide Attempt: No (denies) Hx Bipolar Disorder: No Hx Schizophrenia: No - Patient Surgical History Past Surgical History: Yes Hx Neurologic Surgery: No Hx Cataract Extraction: No Hx Cardiac Surgery: No Hx Lung Surgery: No Hx Breast Surgery: No Hx Breast Biopsy: No Hx Abdominal Surgery: No Hx Appendectomy: No Hx Cholecystectomy: No Hx Genitourinary Surgery: No Hx Section: No Hx Orthopedic Surgery: Yes (rt knee surgery in 1990) Other Surgical History: right ankle torn ligament repair Anesthesia Reaction: No - PPD History Previous Implant?: Yes Documented Results: Negative w/o proof Implanted On Prior [facility] Admission?: Yes Date: 07/21/16 Results: 0 mm PPD to be Administered?: No - Reproductive History Patient is a Female of Child Bearing Age (11 -55 yrs old): No - Smoking Cessation Smoking history: Current every day smoker Have you smoked in the past 12 months: Yes Aproximately how many cigarettes per day: 10 Cigars Per Day: 0 Hx Chewing Tobacco Use: No Initiated information on smoking cessation: Yes 'Breaking Loose' booklet given: 12/04/17 - Substance & Tx. History Hx Alcohol Use: Yes Substance Use Type: Alcohol Hx Substance Use Treatment: Yes (last detox 2016) - Substances Abused Alcohol Route: Oral Frequency: Daily Amount used: 8 24 OZ CANS MALT LIQUOR. Age of first use: 14 Date of Last Use: 12/04/17 Family Disease History - Family Disease History Family Disease History: CA: Father (lung ca alcohol), Other: Mother ( htn) Admission Physical Exam BHS - Vital Signs Vital Signs: Vital Signs - 24 hr 12/04/17 16:04 Temperature 97.1 F L Pulse Rate 86 Respiratory 20 Rate Blood Pressure 151/105 - Physical General Appearance: Yes: Appropriately Dressed, Moderate Distress, Tremorous, Irritable, Sweating, Anxious HEENTM: Yes: Normal Voice, Nasal Congestion Respiratory: Yes: Lungs Clear, Normal Breath Sounds, No Respiratory Distress Neck: Yes: No masses,lesions,Nodules Breast: Yes: Within Normal Limits Cardiology: Yes: Regular Rhythm, Regular Rate, S1, S2 Abdominal: Yes: Normal Bowel Sounds, Non Tender, Soft Genitourinary: Yes: Within Normal Limits Back: Yes: Normal Inspection Musculoskeletal: Yes: full range of Motion Extremities: Yes: Normal Capillary Refill, Normal Inspection, Tremors Neurological: Yes: Fully Oriented, Alert, Normal Response Integumentary: Yes: Normal Color, Diaphoresis Lymphatic: Yes: Within Normal Limits - Diagnostic (1) PCP abuse Current Visit: Yes Status: Chronic (2) Alcohol dependence with uncomplicated withdrawal Current Visit: Yes Status: Chronic (3) GERD (gastroesophageal reflux disease) Current Visit: Yes Status: Chronic Qualifiers: Esophagitis presence: without esophagitis Qualified Code(s): K21.9 - Gastro -esophageal reflux disease without esophagitis (4) Hypertension Current Visit: Yes Status: Chronic Qualifiers: Hypertension type: essential hypertension (5) Methadone maintenance therapy patient Current Visit: Yes Status: Chronic Comment: 30 MG verification pending (6) Nicotine dependence Current Visit: Yes Status: Chronic Qualifiers: Nicotine product type: cigarettes Substance use status: uncomplicated Qualified Code(s): F17.210 - Nicotine dependence, cigarettes, uncomplicated Cleared for Admission BHS - Detox or Rehab [facility] Level of Care: Medically Managed Detox Regimen/Protocol: Librium [facility] Breath Alcohol Content Breath Alcohol Content: 0.281 Urine Drug Screen - Results Drug Screen Negative: No Urine Drug Screen Results: PCP-Phencyclidine, MTD-Methadone
[2017-12-04] MEDS ORDERED: MAGNESIUM HYDROX 2400MG/30ML ORAL SUSPENSION 30 ML CUP PO PRN (16:39)
[2017-12-04] MEDS ORDERED: MENTHOL/PHENOL 1 EACH UD MM PRN (16:39)
[2017-12-04] MEDS ORDERED: guaiFENesin/D-METHORPHAN HB 10 ML UNIT-DOSE CUPS PO PRN (16:39)
[2017-12-04] MEDS ORDERED: IBUPROFEN 400 MG TABLET (FP) PO PRN (16:39)
[2017-12-04] MEDS ORDERED: LOPERAMIDE HCL 2 MG CAPSULE PO PRN (16:39)
[2017-12-04] MEDS ORDERED: P-EPHED 60MG/TRIPROLIDI 2.5MG TABLET PO PRN (16:39)
[2017-12-04] MEDS ORDERED: hydrOXYzine PAMOATE 50 MG CAPSULE (FP) PO PRN (16:39)
[2017-12-04] MEDS ORDERED: MAG HYDROX/AL HYDROX/SIMETH 30 ML UNIT-DOSE CUP PO PRN (16:39)
[2017-12-04] MEDS ORDERED: ACETAMINOPHEN 325 MG TABLET (FP) PO PRN (16:39)
[2017-12-04] MEDS ORDERED: MAGNESIUM CITRATE 300 ML BOTTLE PO PRN (16:39)
[2017-12-04] MEDS ORDERED: chlordiazePOXIDE HCL 25 MG CAPSULE PO ONE (18:00)
[2017-12-04] MEDS: chlordiazePOXIDE HCL 25 MG CAPSULE PO SCH ×2 (18:22→22:02)
[2017-12-04] MEDS: THIAMINE HCL 100 MG TABLET (FP) PO SCH (22:02)
[2017-12-04 23:31] LABS: URINE APPEARANCE CLEAR; URINE BILIRUBIN NEGATIVE (NEGATIVE); URINE BLOOD NEGATIVE (NEGATIVE); URINE COLOR YELLOW; URINE GLUCOSE (UA) NEGATIVE (NEGATIVE); URINE KETONE NEGATIVE (NEGATIVE); URINE LEUK ESTERASE NEGATIVE (NEGATIVE); URINE NITRITE NEGATIVE (NEGATIVE); URINE PROTEIN NEGATIVE (NEGATIVE); URINE UROBILINOGEN NEGATIVE mg/dL (0.2-1.0)
[2017-12-05] MEDS: chlordiazePOXIDE HCL 25 MG CAPSULE PO SCH ×4 (06:25→22:04)
--- NOTE | 2017-12-05 09:20 | PN ---
S CIWA - CIWA Score Nausea/Vomitin Muscle Tremors: 3 Anxiety: 3 Agitation: 3 Paroxysmal Sweats: 1-Minimal Palms Moist Orientation: 0-Oriented Tacttile Disturbances: 1-Very Mild Itch/Numbness Auditory Disturbances: 1-Very Mild Visual Disturbances: 0-None Headache: 2-Mild CIWA-Ar Total Score: 17 BHS Progress Note (SOAP) Subjective: ALERT,IRRITABLE,ANXIOUS,INTERRUPTED SLEEP,TREMOR Objective: 12/05/17 09:18 Vital Signs Temperature 97.7 F 12/05/17 06:00 Pulse Rate 77 12/05/17 06:00 Respiratory Rate 18 12/05/17 06:00 Blood Pressure 129/77 12/05/17 06:00 O2 Sat by Pulse Oximetry (%) EKG NSR,NORMAL ECG Laboratory Last Values Urine Color Yellow 12/04/17 23:05 Urine Appearance Clear 12/04/17 23:05 Urine pH 5.0 (5.0-8.0) 12/04/17 23:05 Ur Specific [place] 1.014 (1.001-1.035) 12/04/17 23:05 Urine Protein Negative (NEGATIVE) 12/04/17 23:05 Urine Glucose (UA) Negative (NEGATIVE) 12/04/17 23:05 Urine Ketones Negative (NEGATIVE) 12/04/17 23:05 Urine Blood Negative (NEGATIVE) 12/04/17 23:05 Urine Nitrite Negative (NEGATIVE) 12/04/17 23:05 Urine Bilirubin Negative (NEGATIVE) 12/04/17 23:05 Urine Urobilinogen Negative mg/dL (0.2-1.0) 12/04/17 23:05 Ur Leukocyte Esterase Negative (NEGATIVE) 12/04/17 23:05 HIV 1&2 Antibody Screen Negative 12/04/17 16:00 HIV P24 Antigen Negative 12/04/17 16:00 LABS PENDING Assessment: 12/05/17 09:19 WITHDRAWAL SYMPTOM Plan: CONTINUE DETOX
[2017-12-05] MEDS: PRENATAL VITAMINS W/ FOLIC ACID TABLET (FP) PO SCH (10:16)
[2017-12-05] MEDS: METHADONE HCL 10 MG TABLET PO SCH (10:16)
[2017-12-05] MEDS: NICOTINE 21 MG/24 HOURS TOPICAL PATCH TD SCH (10:19)
[2017-12-05 10:32] LABS: HEMATOCRIT 39.4 % (35.4-49); HEMOGLOBIN 12.6 GM/dL (11.7-16.9); MCH 31.1 pg (25.7-33.7); MCHC 31.9 g/dl (32.0-35.9); MEAN CELL VOLUME 97.5 fl (80-96); MEAN PLT VOLUME 8.6 fl (7.5-11.1); PLATELET COUNT 260 K/MM3 (134-434); RBC 4.04 M/mm3 (4.00-5.60); RDW 15.2 % (11.9-15.9); WHITE BLOOD COUNT 6.6 K/mm3 (4.0-10.0)
[2017-12-05 10:35] LABS: CHLORIDE 98 mmol/L (98-107); POTASSIUM 3.8 mmol/L (3.5-5.1); SODIUM 133 mmol/L (136-145)
[2017-12-05 10:59] LABS: ALBUMIN 4.3 g/dl (3.4-5.0); ALK PHOS 107 U/L (45-117); ANION GAP 10 (8-16); BILIRUBIN,TOTAL 0.9 mg/dL (0.2-1.0); BLOOD UREA NITROGEN 8 mg/dL (7-18); CALCIUM 8.8 mg/dL (8.5-10.1); CO2 25 mmol/L (21-32); CREATININE 0.8 mg/dL (0.7-1.3); GLUCOSE,RANDOM 102 mg/dL (74-106); SGOT/AST 61 U/L (15-37); SGPT/ALT 38 U/L (12-78); TOT PROT 9.2 g/dl (6.4-8.2)
[2017-12-05 12:19] LABS: RPR REACTIVE 1:1 (NONREACTIVE)
[2017-12-05 12:20] LABS: TREPONEMA ANTIBODY PREVIOUSLY REACTIVE (NONREACTIVE)
[2017-12-05] MEDS: THIAMINE HCL 100 MG TABLET (FP) PO SCH (22:04)
[2017-12-05] MEDS: CLOTRIMAZOLE 1% CREAM 15 GM TUBE TP SCH (22:05)
[2017-12-06] MEDS: chlordiazePOXIDE HCL 25 MG CAPSULE PO PRN ×2 (03:26→20:14)
[2017-12-06] MEDS: chlordiazePOXIDE HCL 25 MG CAPSULE PO SCH ×2 (05:43→10:18)
[2017-12-06] MEDS: METHADONE HCL 10 MG TABLET PO SCH (06:43)
--- NOTE | 2017-12-06 10:14 | PN ---
S CIWA - CIWA Score Nausea/Vomitin Muscle Tremors: 3 Anxiety: 3 Agitation: 2 Paroxysmal Sweats: 1-Minimal Palms Moist Orientation: 0-Oriented Tacttile Disturbances: 1-Very Mild Itch/Numbness Auditory Disturbances: 1-Very Mild Visual Disturbances: 0-None Headache: 2-Mild CIWA-Ar Total Score: 16 BHS Progress Note (SOAP) Subjective: ALERT,IRRITABLE,ANXIOUS,INTERRUPTED SLEEP,TREMOR Objective: 12/06/17 10:13 Vital Signs Temperature 97.1 F L 12/06/17 09:49 Pulse Rate 90 12/06/17 09:49 Respiratory Rate 18 12/06/17 09:49 Blood Pressure 155/97 12/06/17 09:49 O2 Sat by Pulse Oximetry (%) Laboratory Last Values WBC 6.6 K/mm3 (4.0-10.0) D 12/05/17 05:50 RBC 4.04 M/mm3 (4.00-5.60) 12/05/17 05:50 Hgb 12.6 GM/dL (11.7-16.9) 12/05/17 05:50 Hct 39.4 % (35.4-49) 12/05/17 05:50 MCV 97.5 fl (80-96) H 12/05/17 05:50 MCH 31.1 pg (25.7-33.7) 12/05/17 05:50 MCHC 31.9 g/dl (32.0-35.9) L 12/05/17 05:50 RDW 15.2 % (11.9-15.9) 12/05/17 05:50 Plt Count 260 K/MM3 (134-434) D 12/05/17 05:50 MPV 8.6 fl (7.5-11.1) D 12/05/17 05:50 Sodium 133 mmol/L (136-145) L 12/05/17 05:50 Potassium 3.8 mmol/L (3.5-5.1) 12/05/17 05:50 Chloride 98 mmol/L (98-107) 12/05/17 05:50 Carbon Dioxide 25 mmol/L (21-32) 12/05/17 05:50 Anion Gap 10 (8-16) 12/05/17 05:50 BUN 8 mg/dL (7-18) D 12/05/17 05:50 Creatinine 0.8 mg/dL (0.7-1.3) 12/05/17 05:50 Creat Clearance w eGFR > 60 (>60) 12/05/17 05:50 Random Glucose 102 mg/dL (74-106) 12/05/17 05:50 Calcium 8.8 mg/dL (8.5-10.1) 12/05/17 05:50 Total Bilirubin 0.9 mg/dL (0.2-1.0) D 12/05/17 05:50 AST 61 U/L (15-37) H D 12/05/17 05:50 ALT 38 U/L (12-78) D 12/05/17 05:50 Alkaline Phosphatase 107 U/L (45-117) 12/05/17 05:50 Total Protein 9.2 g/dl (6.4-8.2) H 12/05/17 05:50 Albumin 4.3 g/dl (3.4-5.0) D 12/05/17 05:50 Urine Color Yellow 12/04/17 23:05 Urine Appearance Clear 12/04/17 23:05 Urine pH 5.0 (5.0-8.0) 12/04/17 23:05 Ur Specific [place] 1.014 (1.001-1.035) 12/04/17 23:05 Urine Protein Negative (NEGATIVE) 12/04/17 23:05 Urine Glucose (UA) Negative (NEGATIVE) 12/04/17 23:05 Urine Ketones Negative (NEGATIVE) 12/04/17 23:05 Urine Blood Negative (NEGATIVE) 12/04/17 23:05 Urine Nitrite Negative (NEGATIVE) 12/04/17 23:05 Urine Bilirubin Negative (NEGATIVE) 12/04/17 23:05 Urine Urobilinogen Negative mg/dL (0.2-1.0) 12/04/17 23:05 Ur Leukocyte Esterase Negative (NEGATIVE) 12/04/17 23:05 RPR Titer Reactive 1:1 (NONREACTIVE) H 12/05/17 05:50 T.pallidum Ab (MHA) Previously reactive (NONREACTIVE) 12/05/17 05:50 HIV 1&2 Antibody Screen Negative 12/04/17 16:00 HIV P24 Antigen Negative 12/04/17 16:00 12/06/17 10:16 PREVIOUSLY TREATED FOR SYPHILIS Assessment: 12/06/17 10:16 WITHDRAWAL SYMPTOM Plan: CONTINUE DETOX,INSOMNIA,ANXIETY,PSYCHIATRIC CONSULTATION
[2017-12-06] MEDS: PRENATAL VITAMINS W/ FOLIC ACID TABLET (FP) PO SCH (10:18)
[2017-12-06] MEDS: CLOTRIMAZOLE 1% CREAM 15 GM TUBE TP SCH ×2 (10:18→22:12)
[2017-12-06] MEDS: NICOTINE 21 MG/24 HOURS TOPICAL PATCH TD SCH (10:19)
--- NOTE | 2017-12-06 10:56 | EKG ---
Test Reason : Blood Pressure : / mmHG Vent. Rate : 087 BPM Atrial Rate : 087 BPM P-R Int : 176 ms QRS Dur : 082 ms QT Int : 380 ms P-R-T Axes : 063 063 034 degrees QTc Int : 457 ms NORMAL SINUS RHYTHM NORMAL ECG WHEN COMPARED WITH ECG OF 08-JUL-2017 20:49, NO SIGNIFICANT CHANGE WAS FOUND Confirmed by VALERIE RUIZ MD ([id number]) on 12/06/2017 10:56:15 AM Referred By: Confirmed By:VALERIE RUIZ MD
--- NOTE | 2017-12-06 15:36 | CONSULT ---
[facility] Psychiatric Consult - Data Date of interview: 12/06/17 Admission source: [facility] Identifying data: Pt. is a 57 year old single male, father of two, on disability and currently living with his aunt. This is one of multiple admissions for patient. Pt. admitted to for alcohol dependence. Substance Abuse History: Following information confirmed with Mr. Man: Smoking Cessation. Smoking history: Current every day smoker. Have you smoked in the past 12 months: Yes. Aproximately how many cigarettes per day: 10. Cigars Per Day: 0. Hx Chewing Tobacco Use: No. Initiated information on smoking cessation: Yes. 'Breaking Loose' booklet given: 12/04/17. - Substance & Tx. History. Hx Alcohol Use: Yes. Substance Use Type: Alcohol. Hx Substance Use Treatment: Yes (last detox 2016). - Substances Abused. Alcohol. Route: Oral. Frequency: Daily. Amount used: 8 24 OZ CANS MALT LIQUOR. Age of first use: 14. Date of Last Use: 12/04/17 Medical History: Hypertension, GERD, right knee surgery in 1990 Psychiatric History: Pt. denies h/o psychiatric hospitalizations, outpatient care, and suicide attempts. Pt. denies suicidal and homicidal ideation. Physical/Sexual Abuse/Trauma History: Denies. Mental Status Exam - Mental Status Exam Alert and Oriented to: Time, Place, Person Cognitive Function: Good Patient Appearance: Unkempt Mood: Withdrawn Affect: Mood Congruent Patient Behavior: Fatigued Speech Pattern: Delayed Voice Loudness: Moderately Soft/Quiet Thought Process: Goal Oriented Thought Disorder: Not Present Hallucinations: Denies Suicidal Ideation: Denies Homicidal Ideation: Denies Insight/Judgement: Poor Sleep: Poorly Appetite: Fair Muscle strength/Tone: Normal Gait/Station: Other (Did not observe patient's gait.) Psychiatric Findings - Problem List ([place] 1, 2,3) (1) Alcohol dependence with uncomplicated withdrawal Current Visit: Yes Status: Chronic (2) Nicotine dependence Current Visit: Yes Status: Chronic Qualifiers: Nicotine product type: cigarettes Substance use status: uncomplicated Qualified Code(s): F17.210 - Nicotine dependence, cigarettes, uncomplicated (3) PCP abuse Current Visit: Yes Status: Chronic (4) Substance-induced sleep disorder Current Visit: Yes Status: Acute - Initial Treatment Plan Initial Treatment Plan: Psychoeducation provided. Detoxification in progress. Trazodone 50mg qhs ordered for insomnia. Pt. reports favorable effect from previously taking trazodone. Benefits and side effects (Priapism) discussed. Verbal consent given. Will continue to monitor.
[2017-12-06] MEDS: chlordiazePOXIDE 5 MG CAPSULE PO SCH ×2 (16:59→22:12)
[2017-12-06] MEDS: traZODone HCL 50 MG TABLET (FP) PO SCH (22:12)
[2017-12-06] MEDS: THIAMINE HCL 100 MG TABLET (FP) PO SCH (22:12)
[2017-12-07] MEDS: chlordiazePOXIDE 5 MG CAPSULE PO SCH ×2 (05:41→10:17)
[2017-12-07] MEDS: METHADONE HCL 10 MG TABLET PO SCH (05:45)
[2017-12-07] MEDS: PRENATAL VITAMINS W/ FOLIC ACID TABLET (FP) PO SCH (10:16)
[2017-12-07] MEDS: CLOTRIMAZOLE 1% CREAM 15 GM TUBE TP SCH ×2 (10:17→22:55)
[2017-12-07] MEDS: NICOTINE 21 MG/24 HOURS TOPICAL PATCH TD SCH (10:17)
--- NOTE | 2017-12-07 10:29 | PN ---
S Progress Note (SOAP) Subjective: ALERT,IRRITABLE,ANXIOUS,INTERRUPTED SLEEP, Objective: 12/07/17 10:28 Vital Signs Temperature 98.6 F 12/07/17 10:06 Pulse Rate 88 12/07/17 10:06 Respiratory Rate 18 12/07/17 10:06 Blood Pressure 100/68 12/07/17 10:06 O2 Sat by Pulse Oximetry (%) Assessment: 12/07/17 10:29 WITHDRAWAL SYMPTOM Plan: CONTINUE DETOX,DISCHARGE IN AM
[2017-12-07] MEDS: chlordiazePOXIDE HCL 10 MG CAPSULE PO SCH ×2 (18:00→22:07)
[2017-12-07] MEDS: traZODone HCL 50 MG TABLET (FP) PO SCH (22:06)
[2017-12-07] MEDS: THIAMINE HCL 100 MG TABLET (FP) PO SCH (22:06)
[2017-12-08] MEDS: METHADONE HCL 10 MG TABLET PO SCH (06:54)
[2017-12-08] MEDS: chlordiazePOXIDE HCL 10 MG CAPSULE PO SCH ×2 (06:55→10:15)
--- NOTE | 2017-12-08 09:56 | DS ---
[facility] Detox Discharge Summary Admission Date: 12/04/17 Discharge Date: 12/08/17 - History Present History: Alcohol Dependence, MMTP Additional Comments: follow up with after care program as arrangement Pertinent Past History: gerd hypertension nicotine dependence insomnia - Physical Exam Results Vital Signs: Vital Signs Temperature 98.1 F 12/08/17 05:55 Pulse Rate 74 12/08/17 05:55 Respiratory Rate 18 12/08/17 05:55 Blood Pressure 110/76 12/08/17 05:55 O2 Sat by Pulse Oximetry (%) Pertinent Admission Physical Exam Findings: withdrawal symptom and finding - Treatment Hospital Course: Detox Protocol Followed, Detoxed Safely, Responded well, Discharged Condition Good, Rehab Referral Accepted Patient has Accepted a Rehab Referral to: [facility] - Medication Discharge Medications: Ambulatory Orders NK [No Known Home Medication] 12/04/17 - Diagnosis (1) Alcohol dependence with uncomplicated withdrawal Current Visit: Yes Status: Acute (2) GERD (gastroesophageal reflux disease) Current Visit: Yes Status: Chronic Qualifiers: Esophagitis presence: without esophagitis Qualified Code(s): K21.9 - Gastro -esophageal reflux disease without esophagitis (3) Hypertension Current Visit: Yes Status: Chronic Qualifiers: Hypertension type: essential hypertension (4) Methadone maintenance therapy patient Current Visit: Yes Status: Chronic (5) Nicotine dependence Current Visit: Yes Status: Chronic Qualifiers: Nicotine product type: cigarettes Substance use status: uncomplicated Qualified Code(s): F17.210 - Nicotine dependence, cigarettes, uncomplicated (6) Insomnia Current Visit: No Status: Acute - AMA Did Patient Leave Against Medical Advice: No
[2017-12-08] MEDS: PRENATAL VITAMINS W/ FOLIC ACID TABLET (FP) PO SCH (10:15)
[2017-12-08] MEDS: NICOTINE 21 MG/24 HOURS TOPICAL PATCH TD SCH (10:15)
[2017-12-08] MEDS: CLOTRIMAZOLE 1% CREAM 15 GM TUBE TP SCH ×2 (10:15→10:16)
[2017-12-08 17:58] VITALS: BP 94/70; PULSE 79; TEMP 97.7
== END 2017-12-08 16:55 | disposition home or self-care (01) | DRG 773 ==
LOC: YASAS 12:55 → Y6N 17:08
PROVIDERS: ADMIT Internal Medicine; ATTEND Internal Medicine
PROC: HZ2ZZZZ Detoxification Services for Substance Abuse Treatment (ICD-10-PCS; principal; 2017-12-04)
DX: F10.230 Alcohol dependence with withdrawal, uncomplicated (principal); F11.20 Opioid dependence, uncomplicated; F16.10 Hallucinogen abuse, uncomplicated; F17.210 Nicotine dependence, cigarettes, uncomplicated; F19.282 Other psychoactive substance dependence with psychoactive substance-induced sleep disorder; I10 Essential (primary) hypertension; K21.9 Gastro-esophageal reflux disease without esophagitis; G47.00 Insomnia, unspecified; Z87.438 Personal history of other diseases of male genital organs; Z59.0 Homelessness
CPT/HCPCS: 36415; 80053; 81003; 85027; 86593; 86780; 87389; 93005; 93010

== ENCOUNTER 2018-12-14 14:15 | Inpatient (IN) | payer BC ==
[2018-12-14 14:55] VITALS: BMI 22.6
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
[2018-12-14] MEDS ORDERED: MAGNESIUM CITRATE 300 ML BOTTLE PO PRN (16:12)
[2018-12-14] MEDS ORDERED: IBUPROFEN 400 MG TABLET (FP) PO PRN (16:12)
[2018-12-14] MEDS ORDERED: NICOTINE POLACRILEX 2 MG GUM BC PRN (16:12)
[2018-12-14] MEDS ORDERED: MAGNESIUM HYDROX 2400MG/30ML ORAL SUSPENSION 30 ML CUP PO PRN (16:12)
[2018-12-14] MEDS ORDERED: MAG HYDROX/AL HYDROX/SIMETH 30 ML UNIT-DOSE CUP PO PRN (16:12)
[2018-12-14] MEDS: chlordiazePOXIDE HCL 25 MG CAPSULE PO PRN (20:59)
[2018-12-14] MEDS: MENTHOL/PHENOL 1 EACH UD MM PRN (21:02)
[2018-12-14] MEDS: THIAMINE HCL 100 MG TABLET (FP) PO SCH (22:15)
[2018-12-14] MEDS: MELATONIN 5 MG TABLETS PO PRN (22:15)
[2018-12-14] MEDS: chlordiazePOXIDE HCL 25 MG CAPSULE PO SCH (22:15)
[2018-12-15] MEDS: chlordiazePOXIDE HCL 25 MG CAPSULE PO SCH ×4 (06:07→22:02)
[2018-12-15] MEDS: MENTHOL/PHENOL 1 EACH UD MM PRN ×2 (06:08→20:16)
[2018-12-15] MEDS ORDERED: METHADONE HCL 10 MG TABLET PO SCH (10:30)
[2018-12-15] MEDS: PRENATAL VITAMINS W/ FOLIC ACID TABLET (FP) PO SCH (10:38)
[2018-12-15 11:31] LABS: HEMATOCRIT 36.4 % (35.4-49); HEMOGLOBIN 12.7 GM/dL (11.7-16.9); MCH 34.1 pg (25.7-33.7); MEAN CELL VOLUME 97.4 fl (80-96); PLATELET COUNT 210 K/MM3 (134-434); RBC 3.73 M/mm3 (4.00-5.60); RDW 14.3 % (11.9-15.9); WHITE BLOOD COUNT 4.6 K/mm3 (4.0-10.0)
[2018-12-15 11:32] LABS: ALBUMIN 3.2 g/dl (3.4-5.0); ALK PHOS 96 U/L (45-117); ANION GAP 6 MMOL/L (8-16); BILIRUBIN,TOTAL 0.9 mg/dL (0.2-1); BLOOD UREA NITROGEN 13 mg/dL (7-18); CALCIUM 8.3 mg/dL (8.5-10.1); CHLORIDE 97 mmol/L (98-107); CO2 31 mmol/L (21-32); CREATININE 0.8 mg/dL (0.55-1.3); GLUCOSE,RANDOM 92 mg/dL (74-106); POTASSIUM 3.8 mmol/L (3.5-5.1); SGOT/AST 27 U/L (15-37); SGPT/ALT 18 U/L (13-61); SODIUM 134 mmol/L (136-145); TOT PROT 7.8 g/dl (6.4-8.2)
[2018-12-15 11:46] LABS: RPR REACTIVE 1:1 (NONREACTIVE)
[2018-12-15 11:47] LABS: TREPONEMA ANTIBODY PREVIOUSLY REACTIVE (NONREACTIVE)
[2018-12-15] MEDS ORDERED: traZODone HCL 50 MG TABLET (FP) PO PRN (12:47)
[2018-12-15] MEDS ORDERED: TRIMETHOBENZAMIDE HCL 300 MG CAPSULE PO PRN (12:47)
[2018-12-15] MEDS: chlordiazePOXIDE HCL 25 MG CAPSULE PO PRN (15:11)
--- NOTE | 2018-12-15 15:18 | PN ---
S CIWA - CIWA Score Nausea/Vomitin Muscle Tremors: None Anxiety: 2 Agitation: 0-Normal Activity Paroxysmal Sweats: 3 Orientation: 0-Oriented Tacttile Disturbances: 2-Mild Itch/Numbness/Burn Auditory Disturbances: 0-None Visual Disturbances: 2-Mild Sensitivity Headache: 0-None Present CIWA-Ar Total Score: 14 BHS Progress Note (SOAP) Subjective: Sweating, Chills, Vomiting, Body Aches, Diarrhea, Stomach Cramping. Objective: PATIENT A & O X 3, OBSERVED AMBULATING ON UNIT. IN NO ACUTE DISTRESS. 12/15/18 15:16 Vital Signs Temperature 97.4 F L 12/15/18 14:43 Pulse Rate 84 12/15/18 15:00 Respiratory Rate 18 12/15/18 15:00 Blood Pressure 141/90 12/15/18 14:43 O2 Sat by Pulse Oximetry (%) Laboratory Tests 12/15/18 12/15/18 12/15/18 07:45 07:45 07:45 WBC 4.6 RBC 3.73 L Hgb 12.7 Hct 36.4 MCV 97.4 H MCH 34.1 H MCHC 35.0 RDW 14.3 Plt Count 210 MPV 8.0 Sodium 134 L Potassium 3.8 Chloride 97 L Carbon Dioxide 31 Anion Gap 6 L BUN 13 Creatinine 0.8 Creat Clearance w eGFR > 60 Random Glucose 92 Calcium 8.3 L Total Bilirubin 0.9 AST 27 ALT 18 Alkaline Phosphatase 96 Total Protein 7.8 Albumin 3.2 L RPR Titer Reactive 1:1 H T.pallidum Ab (MHA) Previously reactive LABS NOTED. RPR RESULT NOTED TO BE: REACTIVE 1:1; MHATP: PREVIOUSLY REACTIVE. PATIENT REPORTS THAT HE COMPLETED A FULL COURSE OF ANTIBIOTIC TREATMENT FOR SYPHILIS IN THE PAST. 12/15/18 15:16 Assessment: 12/15/18 15:17 WITHDRAWAL SYMPTOMS. 12/15/18 15:18 Plan: CONTINUE DETOX.
[2018-12-15] MEDS: THIAMINE HCL 100 MG TABLET (FP) PO SCH (22:02)
[2018-12-15] MEDS: MELATONIN 5 MG TABLETS PO PRN (22:02)
[2018-12-16] MEDS ORDERED: METHADONE HCL 10 MG TABLET ONE (04:10)
[2018-12-16] MEDS ORDERED: METHADONE HCL 40 MG DISPERSABLE TABLET ONE (04:10)
[2018-12-16] MEDS: METHADONE 40 MG, METHADONE 10 MG PO SCH (05:26)
[2018-12-16] MEDS: chlordiazePOXIDE HCL 25 MG CAPSULE PO SCH ×3 (05:26→17:32)
[2018-12-16] MEDS: PRENATAL VITAMINS W/ FOLIC ACID TABLET (FP) PO SCH (10:06)
--- NOTE | 2018-12-16 12:08 | PN ---
S CIWA - CIWA Score Nausea/Vomitin-No Nausea/No Vomiting Muscle Tremors: 3 Anxiety: 2 Agitation: 2 Paroxysmal Sweats: 1-Minimal Palms Moist Orientation: 0-Oriented Tacttile Disturbances: 0-None Auditory Disturbances: 0-None Visual Disturbances: 0-None Headache: 2-Mild CIWA-Ar Total Score: 10 S Progress Note (SOAP) Subjective: tremor sweating social with peers on hallway Objective: 12/16/18 12:12 Vital Signs Temperature 97.0 F L 12/16/18 09:36 Pulse Rate 94 H 12/16/18 09:36 Respiratory Rate 20 12/16/18 09:36 Blood Pressure 128/83 12/16/18 09:36 O2 Sat by Pulse Oximetry (%) Laboratory Last Values WBC 4.6 K/mm3 (4.0-10.0) 12/15/18 07:45 RBC 3.73 M/mm3 (4.00-5.60) L 12/15/18 07:45 Hgb 12.7 GM/dL (11.7-16.9) 12/15/18 07:45 Hct 36.4 % (35.4-49) 12/15/18 07:45 MCV 97.4 fl (80-96) H 12/15/18 07:45 MCH 34.1 pg (25.7-33.7) H 12/15/18 07:45 MCHC 35.0 g/dl (32.0-35.9) 12/15/18 07:45 RDW 14.3 % (11.9-15.9) 12/15/18 07:45 Plt Count 210 K/MM3 (134-434) 12/15/18 07:45 MPV 8.0 fl (7.5-11.1) 12/15/18 07:45 Sodium 134 mmol/L (136-145) L 12/15/18 07:45 Potassium 3.8 mmol/L (3.5-5.1) 12/15/18 07:45 Chloride 97 mmol/L (98-107) L 12/15/18 07:45 Carbon Dioxide 31 mmol/L (21-32) 12/15/18 07:45 Anion Gap 6 MMOL/L (8-16) L 12/15/18 07:45 BUN 13 mg/dL (7-18) 12/15/18 07:45 Creatinine 0.8 mg/dL (0.55-1.3) 12/15/18 07:45 Creat Clearance w eGFR > 60 (>60) 12/15/18 07:45 Random Glucose 92 mg/dL (74-106) 12/15/18 07:45 Calcium 8.3 mg/dL (8.5-10.1) L 12/15/18 07:45 Total Bilirubin 0.9 mg/dL (0.2-1) 12/15/18 07:45 AST 27 U/L (15-37) 12/15/18 07:45 ALT 18 U/L (13-61) 12/15/18 07:45 Alkaline Phosphatase 96 U/L (45-117) 12/15/18 07:45 Total Protein 7.8 g/dl (6.4-8.2) 12/15/18 07:45 Albumin 3.2 g/dl (3.4-5.0) L 12/15/18 07:45 RPR Titer Reactive 1:1 (NONREACTIVE) H 12/15/18 07:45 T.pallidum Ab (MHA) Previously reactive (NONREACTIVE) 12/15/18 07:45 lab noted Assessment: 12/16/18 12:18 withdrawal sx Plan: continue detox
[2018-12-16] MEDS: ACETAMINOPHEN 325 MG TABLET (FP) PO PRN (17:34)
[2018-12-16] MEDS: chlordiazePOXIDE 5 MG CAPSULE PO SCH (22:15)
[2018-12-16] MEDS: THIAMINE HCL 100 MG TABLET (FP) PO SCH (22:15)
[2018-12-17] MEDS ORDERED: METHADONE HCL 10 MG TABLET ONE (04:28)
[2018-12-17] MEDS ORDERED: METHADONE HCL 40 MG DISPERSABLE TABLET ONE (04:28)
[2018-12-17] MEDS: chlordiazePOXIDE 5 MG CAPSULE PO SCH ×4 (05:27→18:11)
[2018-12-17] MEDS: METHADONE 40 MG, METHADONE 10 MG PO SCH (05:27)
[2018-12-17] MEDS: PRENATAL VITAMINS W/ FOLIC ACID TABLET (FP) PO SCH (10:36)
--- NOTE | 2018-12-17 13:47 | PN ---
S CIWA - CIWA Score Nausea/Vomitin-No Nausea/No Vomiting Muscle Tremors: 1-None Visible, but [place] Anxiety: 1-Mildly Anxious Agitation: 2 Paroxysmal Sweats: 1-Minimal Palms Moist Orientation: 0-Oriented Tacttile Disturbances: 1-Very Mild Itch/Numbness Auditory Disturbances: 0-None Visual Disturbances: 0-None Headache: 1-Very Mild CIWA-Ar Total Score: 7 BHS Progress Note (SOAP) Subjective: feeling better less tremor mild sweating Objective: 12/17/18 13:45 Vital Signs Temperature 97.6 F 12/17/18 09:10 Pulse Rate 86 12/17/18 09:10 Respiratory Rate 18 12/17/18 09:10 Blood Pressure 120/77 12/17/18 09:10 O2 Sat by Pulse Oximetry (%) Laboratory Last Values WBC 4.6 K/mm3 (4.0-10.0) 12/15/18 07:45 RBC 3.73 M/mm3 (4.00-5.60) L 12/15/18 07:45 Hgb 12.7 GM/dL (11.7-16.9) 12/15/18 07:45 Hct 36.4 % (35.4-49) 12/15/18 07:45 MCV 97.4 fl (80-96) H 12/15/18 07:45 MCH 34.1 pg (25.7-33.7) H 12/15/18 07:45 MCHC 35.0 g/dl (32.0-35.9) 12/15/18 07:45 RDW 14.3 % (11.9-15.9) 12/15/18 07:45 Plt Count 210 K/MM3 (134-434) 12/15/18 07:45 MPV 8.0 fl (7.5-11.1) 12/15/18 07:45 Sodium 134 mmol/L (136-145) L 12/15/18 07:45 Potassium 3.8 mmol/L (3.5-5.1) 12/15/18 07:45 Chloride 97 mmol/L (98-107) L 12/15/18 07:45 Carbon Dioxide 31 mmol/L (21-32) 12/15/18 07:45 Anion Gap 6 MMOL/L (8-16) L 12/15/18 07:45 BUN 13 mg/dL (7-18) 12/15/18 07:45 Creatinine 0.8 mg/dL (0.55-1.3) 12/15/18 07:45 Creat Clearance w eGFR > 60 (>60) 12/15/18 07:45 Random Glucose 92 mg/dL (74-106) 12/15/18 07:45 Calcium 8.3 mg/dL (8.5-10.1) L 12/15/18 07:45 Total Bilirubin 0.9 mg/dL (0.2-1) 12/15/18 07:45 AST 27 U/L (15-37) 12/15/18 07:45 ALT 18 U/L (13-61) 12/15/18 07:45 Alkaline Phosphatase 96 U/L (45-117) 12/15/18 07:45 Total Protein 7.8 g/dl (6.4-8.2) 12/15/18 07:45 Albumin 3.2 g/dl (3.4-5.0) L 12/15/18 07:45 RPR Titer Reactive 1:1 (NONREACTIVE) H 12/15/18 07:45 T.pallidum Ab (MHA) Previously reactive (NONREACTIVE) 12/15/18 07:45 lab noted Assessment: 12/17/18 13:46 mild withdrawal sx Plan: continue detox
[2018-12-17] MEDS: MENTHOL/PHENOL 1 EACH UD MM PRN ×2 (15:39→22:30)
[2018-12-17] MEDS: chlordiazePOXIDE HCL 10 MG CAPSULE PO SCH (22:03)
[2018-12-17] MEDS: MELATONIN 5 MG TABLETS PO PRN (22:03)
[2018-12-17] MEDS: THIAMINE HCL 100 MG TABLET (FP) PO SCH (22:03)
[2018-12-18] MEDS ORDERED: METHADONE HCL 10 MG TABLET ONE (04:12)
[2018-12-18] MEDS ORDERED: METHADONE HCL 40 MG DISPERSABLE TABLET ONE (04:12)
[2018-12-18] MEDS: METHADONE 40 MG, METHADONE 10 MG PO SCH (05:31)
[2018-12-18] MEDS: chlordiazePOXIDE HCL 10 MG CAPSULE PO SCH ×2 (05:31→10:13)
[2018-12-18] MEDS: PRENATAL VITAMINS W/ FOLIC ACID TABLET (FP) PO SCH (10:13)
[2018-12-18] MEDS: ACETAMINOPHEN 325 MG TABLET (FP) PO PRN (10:15)
[2018-12-18] MEDS: MENTHOL/PHENOL 1 EACH UD MM PRN (10:17)
[2018-12-18 13:38] VITALS: BP 104/74; PULSE 105; TEMP 95.8
--- NOTE | 2018-12-18 15:29 | DS ---
[facility] Detox Discharge Summary Admission Date: 12/14/18 Discharge Date: 12/18/18 - History Present History: Alcohol Dependence Additional Comments: 58 years old male admitted on 12/14/18 for alcohol withdrawal stabilization completed alcohol detox regimen aftercare return to methadone maintenance program, Pertinent Past History: patient stated that he dose not feeling well unable to describe discomfort in detail denies pain tolerate food and fluid well recommend ER evaluation patient refused refusal form signed and witnessed by the nurse and blog writer patient preferred return to methadone program for medical mental and addiction issues - Physical Exam Results Vital Signs: Vital Signs Temperature 95.8 F L 12/18/18 13:38 Pulse Rate 105 H 12/18/18 13:38 Respiratory Rate 18 12/18/18 13:38 Blood Pressure 104/74 12/18/18 13:38 O2 Sat by Pulse Oximetry (%) Pertinent Admission Physical Exam Findings: alcohol withdrawal sx Laboratory Last Values WBC 4.6 K/mm3 (4.0-10.0) 12/15/18 07:45 RBC 3.73 M/mm3 (4.00-5.60) L 12/15/18 07:45 Hgb 12.7 GM/dL (11.7-16.9) 12/15/18 07:45 Hct 36.4 % (35.4-49) 12/15/18 07:45 MCV 97.4 fl (80-96) H 12/15/18 07:45 MCH 34.1 pg (25.7-33.7) H 12/15/18 07:45 MCHC 35.0 g/dl (32.0-35.9) 12/15/18 07:45 RDW 14.3 % (11.9-15.9) 12/15/18 07:45 Plt Count 210 K/MM3 (134-434) 12/15/18 07:45 MPV 8.0 fl (7.5-11.1) 12/15/18 07:45 Sodium 134 mmol/L (136-145) L 12/15/18 07:45 Potassium 3.8 mmol/L (3.5-5.1) 12/15/18 07:45 Chloride 97 mmol/L (98-107) L 12/15/18 07:45 Carbon Dioxide 31 mmol/L (21-32) 12/15/18 07:45 Anion Gap 6 MMOL/L (8-16) L 12/15/18 07:45 BUN 13 mg/dL (7-18) 12/15/18 07:45 Creatinine 0.8 mg/dL (0.55-1.3) 12/15/18 07:45 Creat Clearance w eGFR > 60 (>60) 12/15/18 07:45 Random Glucose 92 mg/dL (74-106) 12/15/18 07:45 Calcium 8.3 mg/dL (8.5-10.1) L 12/15/18 07:45 Total Bilirubin 0.9 mg/dL (0.2-1) 12/15/18 07:45 AST 27 U/L (15-37) 12/15/18 07:45 ALT 18 U/L (13-61) 12/15/18 07:45 Alkaline Phosphatase 96 U/L (45-117) 12/15/18 07:45 Ammonia 76.94 umol/L (11-32) H 12/18/18 08:00 Total Protein 7.8 g/dl (6.4-8.2) 12/15/18 07:45 Albumin 3.2 g/dl (3.4-5.0) L 12/15/18 07:45 RPR Titer Reactive 1:1 (NONREACTIVE) H 12/15/18 07:45 T.pallidum Ab (MHA) Previously reactive (NONREACTIVE) 12/15/18 07:45 lab noted ammonia level 76 patient is alert coherent speech encourage pharmacy picking tech lactulose from pharmacy and take as directed - Treatment Hospital Course: Detox Protocol Followed, Detoxed Safely, Responded well, Discharged Condition Good, Rehab Referral Accepted Patient has Accepted a Rehab Referral to: methadone maintenance program - Medication Discharge Medications: Ambulatory Orders Methadone [Dolophine -] 50 mg PO DAILY 12/14/18 Lactulose (Oral Use) [Cephulac -] 20 gm PO TID #1 bottle 12/18/18 - Diagnosis (1) Alcohol dependence with uncomplicated withdrawal Status: Acute (2) Substance induced mood disorder Status: Suspected (3) Syphilis Status: Chronic (4) Weight loss Status: Acute (5) GERD (gastroesophageal reflux disease) Status: Chronic Qualifiers: Esophagitis presence: without esophagitis Qualified Code(s): K21.9 - Gastro -esophageal reflux disease without esophagitis (6) Hypertension Status: Chronic Qualifiers: Hypertension type: essential hypertension Qualified Code(s): I10 - Essential (primary) hypertension (7) Methadone maintenance therapy patient Status: Chronic (8) Nicotine dependence Status: Acute Qualifiers: Nicotine product type: cigarettes Substance use status: in withdrawal Qualified Code(s): F17.213 - Nicotine dependence, cigarettes, with withdrawal (9) Use of cane as ambulatory aid Status: Chronic - AMA Did Patient Leave Against Medical Advice: No
== END 2018-12-18 14:15 | disposition home or self-care (01) | DRG 773 ==
LOC: YASAS 14:15 → Y3N 16:47
PROVIDERS: ADMIT Surgery; ATTEND Surgery
PROC: HZ2ZZZZ Detoxification Services for Substance Abuse Treatment (ICD-10-PCS; principal; 2018-12-14)
DX: F10.230 Alcohol dependence with withdrawal, uncomplicated (principal); F11.20 Opioid dependence, uncomplicated; F17.213 Nicotine dependence, cigarettes, with withdrawal; F19.24 Other psychoactive substance dependence with psychoactive substance-induced mood disorder; K21.9 Gastro-esophageal reflux disease without esophagitis; A53.9 Syphilis, unspecified; R26.2 Difficulty in walking, not elsewhere classified; Z99.89 Dependence on other enabling machines and devices; Z59.0 Homelessness
CPT/HCPCS: 36415; 80053; 82140; 85027; 86593; 86780